=== PATIENT | male | born 1985 | race Caucasian/White ===

== ENCOUNTER 2017-01-11 21:22 | Emergency (ER) | payer OTHER ==
--- NOTE | 2017-01-11 21:58 | ED CLINICAL REPORT ---
Clinical Report - Physicians/Mid Levels [facility] [place] [address] 01/11/2017 21:27 Patient: MELISSA MOORE Time Seen: 22:42 Andrew 2016. Arrived- By private vehicle. Historian- patient. HISTORY OF PRESENT ILLNESS Chief Complaint: Injury to the right hand. The injury happened just prior to arrival. Occurred at home. Patient is experiencing mild pain. Patient denies injury to the head. ( patient reports right hand pain over the last 1 year, worse over 1 month, worse over the last 7 days. Patient denies any direct trauma, reports or shift, [place], however does wear gloves, believes it may be a reaction from the chemicals. Denies any fevers. Denies any drainage in the area. Denies any direct trauma to the area. Patient has not been seen by anybody. Has been taking Motrin, with minimal relief.). REVIEW OF SYSTEMS No tingling. All systems otherwise negative, except as recorded above. PAST HISTORY The patient's dominant hand is the right. He has not had a prior injury to the same area. ADDITIONAL NOTES The nursing notes have been reviewed. PHYSICAL EXAM Vital Signs: 01/11/2017 21:35 BP: 138/86. HR: 80. RR: 16. O2 saturation: 99%. Temp: 98.2 F. Appearance: Alert. Neck: Normal inspection. Neck supple. CVS: Normal heart rate and rhythm. Heart sounds normal. Respiratory: No respiratory distress. Skin: Skin intact. Extremities: Right hand web space: (small inflammation, no erythema, full distal rom, flexion/ extension and sensation). No wrist injury. Neuro, Vascular and Tendons: Vascular status intact. Motor intact. Neuro: Oriented X 3. PROGRESS AND PROCEDURES Course of Care: Senegalese translation line was used. Patient was size of inflammatory process with mild swelling, may be a reaction, will treat withsteroid course, however if this does not improve his symptoms, he may have to follow up outpatient, possible with hand or dermatology. He does not have any signs of decrease of functionality use distal to the area of inflammation, he is instructed to use new gloves, his anti-inflammatory, dose of steroids, and to follow up outpatient. Patient/family counseled. Disposition: Discharged. Condition: good. CLINICAL IMPRESSION Mild irritative contact dermatitis from chemical (R. Hand). INSTRUCTIONS Apply ice. Elevate affected areas above chest level. Do not work tomorrow. Prescription Medications: Ibuprofen 800 mg tablets: take 1 tablet orally every 8 hours for 5 days, as needed for pain. Dispense fifteen (15). No refill. Medrol Dosepak: take according to package directions. Dispense one (1) dosepak. No refills. Substitution is permissible. (Electronically signed by Meena Pablo P.A.-C 01/11/2017 22:45)
--- NOTE | 2017-01-11 21:58 | ED NURSING NOTES ---
Clinical Report - Nurses [facility] [address] [place] [address] 01/11/2017 21:27 Patient: MELISSA MOORE TRIAGE Triage time 2135. Acuity: LEVEL 3. Chief Complaint: RIGHT UPPER EXTREMITY SWELLING and REDNESS. --22:16 Rox Simmons R.N. 21:35 01/11/17. BP: 138/86. HR: 80. RR: 16. O2 saturation: 99%. Temp: 98.2 F. --22:16 Rox Simmons R.N. 22:17 01/11/17. Pain level now 6/10. --22:17 Rox Simmons R.N. Weight: 72.5 kg estimated. Height/Length: 69 inches Estimated. BMI: 23.6. --21:53 Rox Simmons R.N. Medications Motrin at 1930. --21:54 Rox Simmons R.N. Allergies No Known Drug Allergy. --21:54 Rox Simmons R.N. History Arrived by private vehicle. Historian: patient. Accompanied by friend. No primary care physician. This occurred (about 1 month ago, much worse over last 1 week.). He has had swelling and redness. PAST MEDICAL HX: Negative. SURGERY HX: No history of previous surgery. SOCIAL HX: Light tobacco smoker (cigarette)- less than 1/2 a pack per day. Occasional alcohol use. No drug use. He has not traveled outside the [place] --22:16 Rox Simmons R.N. PROBLEMS: no known problems. ADDITIONAL SURGERIES: no known surgeries. Interventions ID band on patient. To treatment room. --22:16 Rox Simmons R.N. PHYSICAL ASSESSMENT 21:35. Ambulatory to room. GENERAL / NEURO / PSYCH: Oriented X 4. Appears in pain. EXTREMITIES: Increased warmth on the extremities. Upper extremity edema. SKIN: Skin is warm and dry. --22:00 Rox Simmons R.N. NURSING PROGRESS NOTES 21:35. Reassurance given. Patient identifiers checked. Call light placed in reach. Side rails up. Bed placed in lowest position. Patient ready for evaluation- chart flagged. ( using [employer] dedicated intermodal truck driver service- for both RN and PA interview and DC instructions). --21:59 Rox Simmons R.N. DISPOSITION / DISCHARGE 22:00. Condition at departure: stable. Ability to learn limited by language barrier; teaching performed with the patient and family via dedicated intermodal truck driver service. Reviewed medication(s) (motrin, medrol dospack). Patient and spouse verbalized understanding. Written instructions provided in Monegasque and Sinhala. The patient was discharged home and accompanied by spouse. He left the Emergency Department ambulatory and via private vehicle. Spouse driving. --22:16 Rox Simmons R.N. 22:00 01/11/17. BP: deferred. HR: deferred. RR: deferred. O2 saturation: deferred. Temp: deferred. Pain level now: 01/09. --22:16 Rox Simmons R.N. Locked/Released at 01/11/2017 22:25 by Rox Simmons R.N.
--- NOTE | 2017-01-11 21:58 | ED CLINICAL REPORT ---
Clinical Report - Physicians/Mid Levels [facility] [place] [address] 01/11/2017 21:27 Patient: MELISSA MOORE Time Seen: 22:42 Andrew 2016. Arrived- By private vehicle. Historian- patient. HISTORY OF PRESENT ILLNESS Chief Complaint: Injury to the right hand. The injury happened just prior to arrival. Occurred at home. Patient is experiencing mild pain. Patient denies injury to the head. ( patient reports right hand pain over the last 1 year, worse over 1 month, worse over the last 7 days. Patient denies any direct trauma, reports or shift, [place], however does wear gloves, believes it may be a reaction from the chemicals. Denies any fevers. Denies any drainage in the area. Denies any direct trauma to the area. Patient has not been seen by anybody. Has been taking Motrin, with minimal relief.). REVIEW OF SYSTEMS No tingling. All systems otherwise negative, except as recorded above. PAST HISTORY The patient's dominant hand is the right. He has not had a prior injury to the same area. ADDITIONAL NOTES The nursing notes have been reviewed. PHYSICAL EXAM Vital Signs: 01/11/2017 21:35 BP: 138/86. HR: 80. RR: 16. O2 saturation: 99%. Temp: 98.2 F. Appearance: Alert. Neck: Normal inspection. Neck supple. CVS: Normal heart rate and rhythm. Heart sounds normal. Respiratory: No respiratory distress. Skin: Skin intact. Extremities: Right hand web space: (small inflammation, no erythema, full distal rom, flexion/ extension and sensation). No wrist injury. Neuro, Vascular and Tendons: Vascular status intact. Motor intact. Neuro: Oriented X 3. PROGRESS AND PROCEDURES Course of Care: Senegalese translation line was used. Patient was size of inflammatory process with mild swelling, may be a reaction, will treat withsteroid course, however if this does not improve his symptoms, he may have to follow up outpatient, possible with hand or dermatology. He does not have any signs of decrease of functionality use distal to the area of inflammation, he is instructed to use new gloves, his anti-inflammatory, dose of steroids, and to follow up outpatient. Patient/family counseled. Disposition: Discharged. Condition: good. CLINICAL IMPRESSION Mild irritative contact dermatitis from chemical (R. Hand). INSTRUCTIONS Apply ice. Elevate affected areas above chest level. Do not work tomorrow. Prescription Medications: Ibuprofen 800 mg tablets: take 1 tablet orally every 8 hours for 5 days, as needed for pain. Dispense fifteen (15). No refill. Medrol Dosepak: take according to package directions. Dispense one (1) dosepak. No refills. Substitution is permissible. (Electronically signed by Meena Pablo P.A.-C 01/11/2017 22:45)
--- NOTE | 2017-01-11 21:58 | ED NURSING NOTES ---
Clinical Report - Nurses [facility] [address] [place] [address] 01/11/2017 21:27 Patient: MELISSA MOORE TRIAGE Triage time 2135. Acuity: LEVEL 3. Chief Complaint: RIGHT UPPER EXTREMITY SWELLING and REDNESS. --22:16 Rox Simmons R.N. 21:35 01/11/17. BP: 138/86. HR: 80. RR: 16. O2 saturation: 99%. Temp: 98.2 F. --22:16 Rox Simmons R.N. 22:17 01/11/17. Pain level now 6/10. --22:17 Rox Simmons R.N. Weight: 72.5 kg estimated. Height/Length: 69 inches Estimated. BMI: 23.6. --21:53 Rox Simmons R.N. Medications Motrin at 1930. --21:54 Rox Simmons R.N. Allergies No Known Drug Allergy. --21:54 Rox Simmons R.N. History Arrived by private vehicle. Historian: patient. Accompanied by friend. No primary care physician. This occurred (about 1 month ago, much worse over last 1 week.). He has had swelling and redness. PAST MEDICAL HX: Negative. SURGERY HX: No history of previous surgery. SOCIAL HX: Light tobacco smoker (cigarette)- less than 1/2 a pack per day. Occasional alcohol use. No drug use. He has not traveled outside the [place] --22:16 Rox Simmons R.N. PROBLEMS: no known problems. ADDITIONAL SURGERIES: no known surgeries. Interventions ID band on patient. To treatment room. --22:16 Rox Simmons R.N. PHYSICAL ASSESSMENT 21:35. Ambulatory to room. GENERAL / NEURO / PSYCH: Oriented X 4. Appears in pain. EXTREMITIES: Increased warmth on the extremities. Upper extremity edema. SKIN: Skin is warm and dry. --22:00 Rox Simmons R.N. NURSING PROGRESS NOTES 21:35. Reassurance given. Patient identifiers checked. Call light placed in reach. Side rails up. Bed placed in lowest position. Patient ready for evaluation- chart flagged. ( using [employer] educational sign language interpreter service- for both RN and PA interview and DC instructions). --21:59 Rox Simmons R.N. DISPOSITION / DISCHARGE 22:00. Condition at departure: stable. Ability to learn limited by language barrier; teaching performed with the patient and family via educational sign language interpreter service. Reviewed medication(s) (motrin, medrol dospack). Patient and spouse verbalized understanding. Written instructions provided in Danish and Latvian. The patient was discharged home and accompanied by spouse. He left the Emergency Department ambulatory and via private vehicle. Spouse driving. --22:16 Rox Simmons R.N. 22:00 01/11/17. BP: deferred. HR: deferred. RR: deferred. O2 saturation: deferred. Temp: deferred. Pain level now: 01/09. --22:16 Rox Simmons R.N. Locked/Released at 01/11/2017 22:25 by Rox Simmons R.N.
--- NOTE | 2017-01-11 22:45 | ED DISCHARGE INSTRUCTIONS ---
Patient: MELISSA MOORE SABRINA General Instructions [facility] VisitID: [id number] [place] [address] 31y, M Registration Date/Time: 01/11/2017 Mild irritative contact dermatitis from chemical (R. Hand). INSTRUCTIONS Apply ice. Elevate affected areas above chest level. Do not work tomorrow. Prescription Medications: Ibuprofen 800 mg tablets: take 1 tablet orally every 8 hours for 5 days, as needed for pain. Dispense fifteen (15). No refill. Medrol Dosepak: take according to package directions. Dispense one (1) dosepak. No refills. Substitution is permissible. ADDITIONAL INFORMATION Dermatitis (Non-Specific) Dermatitis is an inflammation of the skin. The exact cause of your rash is not certain. However, this rash does not appear to be an infection or contagious illness. Taking care of the rash at home should help relieve your symptoms. Home Care: Keep the areas of rash clean by washing it daily. This also helps to keep the skin moist. Use a neutral pH soap such as Dove or Lever 2000. Apply a moisturizing lotion after bathing to prevent dry skin. Avoid skin irritants (wool or silk clothing, grease, oils, some medicines, harsh soaps, and detergents). Wear absorbent, soft fabrics next to the skin rather than rough or scratchy materials. Unless another medicine was prescribed, you may use Hydrocortisone cream (which you can get without a prescription) to reduce the inflammation. Follow Up: Make an appointment with your doctor in the next 1 to 2 weeks if your symptoms do not improve with the above measures. Get Prompt Medical Attention if any of the following occur: Increasing area of redness or pain in the skin Yellow crusts or drainage from the rash Joint pain New rash that appears in other areas of the body Fever of 100.4F (38C) or higher, or as directed by your healthcare provider You have been given the following additional information: Dermatitis, Non-Specific Do not work tomorrow. (Electronically signed by Meena Pablo P.A.-C 01/11/2017 22:45)
--- NOTE | 2017-01-11 22:45 | ED MED RECONCILIATION SUMMARY ---
Patient: DARÍO CHIUMELISSA Medication Reconciliation Report [facility] VisitID: [id number] [address] [place] [address] 31y, M Registration Date/Time: 01/11/2017 Weight: 72.5 kg Height/Length: 69 in. BMI: 23.6 ALLERGIES: No Known Drug Allergy The patient's Home Medications are listed below: THE FOLLOWING MEDICATIONS NEED TO BE RECONCILED: Lindsayrin at 1930 The source(s) of the original Home Medication information: Not obtained. The following Medications were given to the patient in the Emergency Department: None. The following Medications were prescribed to the patient: Ibuprofen 800 mg tablets: take 1 tablet orally every 8 hours for 5 days, as needed for pain. Dispense fifteen (15). No refill. -- Meena Pablo, P.ALavon-Fermin Medrol Dosepak: take according to package directions. Dispense one (1) dosepak. No refills. Substitution is permissible. -- Meena Pablo, P.A.-C
--- NOTE | 2017-01-11 22:45 | ED MED RECONCILIATION SUMMARY ---
Patient: DARÍO CHIUMELISSA Medication Reconciliation Report [facility] VisitID: [id number] [address] [place] [address] 31y, M Registration Date/Time: 01/11/2017 Weight: 72.5 kg Height/Length: 69 in. BMI: 23.6 ALLERGIES: No Known Drug Allergy The patient's Home Medications are listed below: THE FOLLOWING MEDICATIONS NEED TO BE RECONCILED: Lindsayrin at 1930 The source(s) of the original Home Medication information: Not obtained. The following Medications were given to the patient in the Emergency Department: None. The following Medications were prescribed to the patient: Ibuprofen 800 mg tablets: take 1 tablet orally every 8 hours for 5 days, as needed for pain. Dispense fifteen (15). No refill. -- Meena Pablo, P.ALavon-Fermin Medrol Dosepak: take according to package directions. Dispense one (1) dosepak. No refills. Substitution is permissible. -- Meena Pablo, P.A.-C
--- NOTE | 2017-01-11 22:45 | ED MAR SUMMARY ---
..... Medication Administration Record [facility] [address] [place], [place] [id number] Patient: CHANELMELISSA ADAMSON Visit ID: [id number] 31y, M Weight: 72.5 kg Height/Length: 69 in BMI: 23.6 ALLERGIES: No Known Drug Allergy
--- NOTE | 2017-01-11 22:45 | ED DISCHARGE INSTRUCTIONS ---
Patient: MELISSA MOORE SABRINA General Instructions [facility] VisitID: [id number] [place] [address] 31y, M Registration Date/Time: 01/11/2017 Mild irritative contact dermatitis from chemical (R. Hand). INSTRUCTIONS Apply ice. Elevate affected areas above chest level. Do not work tomorrow. Prescription Medications: Ibuprofen 800 mg tablets: take 1 tablet orally every 8 hours for 5 days, as needed for pain. Dispense fifteen (15). No refill. Medrol Dosepak: take according to package directions. Dispense one (1) dosepak. No refills. Substitution is permissible. ADDITIONAL INFORMATION Dermatitis (Non-Specific) Dermatitis is an inflammation of the skin. The exact cause of your rash is not certain. However, this rash does not appear to be an infection or contagious illness. Taking care of the rash at home should help relieve your symptoms. Home Care: Keep the areas of rash clean by washing it daily. This also helps to keep the skin moist. Use a neutral pH soap such as Dove or Lever 2000. Apply a moisturizing lotion after bathing to prevent dry skin. Avoid skin irritants (wool or silk clothing, grease, oils, some medicines, harsh soaps, and detergents). Wear absorbent, soft fabrics next to the skin rather than rough or scratchy materials. Unless another medicine was prescribed, you may use Hydrocortisone cream (which you can get without a prescription) to reduce the inflammation. Follow Up: Make an appointment with your doctor in the next 1 to 2 weeks if your symptoms do not improve with the above measures. Get Prompt Medical Attention if any of the following occur: Increasing area of redness or pain in the skin Yellow crusts or drainage from the rash Joint pain New rash that appears in other areas of the body Fever of 100.4F (38C) or higher, or as directed by your healthcare provider You have been given the following additional information: Dermatitis, Non-Specific Do not work tomorrow. (Electronically signed by Meena Pablo P.A.-C 01/11/2017 22:45)
--- NOTE | 2017-01-11 22:45 | ED MAR SUMMARY ---
..... Medication Administration Record [facility] [address] [place], [place] [id number] Patient: CHANELMELISSA ADAMSON Visit ID: [id number] 31y, M Weight: 72.5 kg Height/Length: 69 in BMI: 23.6 ALLERGIES: No Known Drug Allergy
== END 2017-01-11 22:05 | disposition home or self-care (01) ==
LOC: ED SRH 21:22
DX: L24.5 Irritant contact dermatitis due to other chemical products (principal)

== ENCOUNTER 2017-01-21 20:01 | Emergency (ER) | payer OTHER ==
--- NOTE | 2017-01-21 20:15 | ED NURSING NOTES ---
Clinical Report - Nurses [facility] [place] [address] 01/21/2017 20:02 [id number] Triage time 20:05. Acuity: LEVEL 4. Chief Complaint: RIGHT EAR PAIN. 20:13 01/21/17. Alert. No acute distress. SEPSIS SCREEN: Sepsis Screen. Negative (no infection suspected/documented). ABDI COMA SCORE: Ewing Coma Scale: 15- eyes open spontaneously (4); best verbal response- oriented x 4 (5); best motor response- obeys commands (6). --20:13 Promise Woods R.N. 20:06 01/21/17. BP: 126/76. HR: 75. RR: 15. O2 saturation: 95%. Temp: 97.9 F. Pain level now: 8/10. --20:13 Promise Woods R.N. Weight: 72.5 kg estimated. Height/Length: 65 inches Estimated. BMI: 26.6. --20:12 Promise Woods R.N. Medications None. --20:09 Promise Woods R.N. Allergies None. --20: Promise Woods R.N. History Arrived by private vehicle. Historian: patient. Accompanied by family. Onset. (four days ago). 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 PAST MEDICAL HX: Immunizations: up-to-date. SOCIAL HX: Light tobacco smoker. Occasional alcohol use. No drug use. FALL RISK ASSESSMENT: Fall risk assessment completed. No fall risk identified. NUTRITIONAL RISK ASSESSMENT: The nutritional risk assessment revealed no deficiencies. FUNCTIONAL ASSESSMENT: Functional assessment: no impairments noted. LEARNING NEEDS ASSESSMENT: The learning needs assessment revealed no barriers. SKIN INTEGRITY ASSESSMENT: Skin integrity risk assessment completed. No skin integrity risk identified. --20:13 Promise Woods R.N. PROBLEMS: Contact Dermatitis. --20:09 Promise Woods R.N. ADDITIONAL SURGERIES: no known surgeries. Interventions ID band on patient. To treatment room. --20:13 Promise Woods R.N. PHYSICAL ASSESSMENT 20:16 01/21/17. Ambulatory to room. GENERAL / NEURO / PSYCH: Alert. Appears in no acute distress. HEENT: No facial asymmetry noted. Pupils equal, round and reactive to light. Inflammation present in the right external auditory canal. Left ear within normal limits. RESPIRATORY: Respirations not labored. CVS: Capillary refill less than 2 seconds. SKIN: Skin is warm and dry. --20:16 Promise Woods R.N. NURSING PROGRESS NOTES 20:01/21/17. Two patient identifiers checked. Call light placed in reach. Side rails up x 1. Bed placed in lowest position. Brakes of bed on. --20:17 Promise Woods R.N. DISPOSITION / DISCHARGE 20:01/21/17. No learning barriers present. Discharge instructions provided and reviewed with the patient and spouse. Reviewed warnings. Reviewed medication(s). Treatments reviewed. Patient and spouse verbalized understanding. Written instructions provided in Malay and Anguillan. ( Patient stated he understood discharge information and did not need any additional translation services.). The patient was discharged home and accompanied by spouse. He left the Emergency Department ambulatory and via private vehicle. --20:25 Promise Woods R.N. 20:01/21/17. BP: 126/76. HR: 75. RR: 15. O2 saturation: 95%. Temp: 97.9 F. Pain level now: 8/10. --20:25 Promise Woods R.N. Locked/Released at 01/21/2017 20:32 by Promise Woods R.N.
--- NOTE | 2017-01-21 20:15 | ED CLINICAL REPORT ---
Clinical Report - Physicians/Mid Levels Located [facility] [address] [place] [address] 01/21/2017 20:02 Patient: MELISSA MOORE Time Seen: 2002; upon arrival, initial patient contact, initial documentation, patient care assumed. Arrived- By private vehicle. Historian- patient. HISTORY OF PRESENT ILLNESS Chief Complaint: EARACHE. Modifying factors. Not worsened by anything. Not relieved by anything. This started about 4 days ago and is still present. Location- right ear. The pain is described as moderate. The patient has had ear pain. He has had mild right-sided tinnitus (for 2 days ago). The tinnitus on the right has been constant and associated with ringing and roaring. No ear drainage, hearing loss, nasal discharge or congestion or sinus pressure. No complaint of foreign body in the ear, ear trauma, recent barotrauma, sore throat or toothache. No jaw pain or facial pain. Similar symptoms previously: None. Recent medical care: Not recently seen/assessed. REVIEW OF SYSTEMS No fever or cough. All systems otherwise negative, except as recorded above. PAST HISTORY Negative. SOCIAL HISTORY Light tobacco smoker. Occasional alcohol use. Not exposed to second-hand smoke at home. No drug use. No recent travel. Is a local resident. He lives with spouse. FAMILY HISTORY Negative. ADDITIONAL NOTES The nursing notes have been reviewed with agreement regarding the chief complaint, HPI, ROS, PMH and patient medications and allergies. PHYSICAL EXAM Vital Signs: 01/21/2017 20:06 BP: 126/76. HR: 75. RR: 15. O2 saturation: 95%. Temp: 97.9 F. Pain level now: 8/10. Have been reviewed as normal and appear to be correct. Appearance: Alert. No acute distress. Eyes: Eyes normal inspection. Nose: Nose normal. Ear (right): There is mild erythema of the external canal and swelling of the external canal. Right ear abnormal. Right tympanic membrane normal. Ear (left): Left ear normal. Left tympanic membrane normal. Throat: Pharynx normal. Neck: Normal inspection. Neck supple. Respiratory: No respiratory distress. Skin: Skin warm and dry. Normal skin color. No rash. Normal skin turgor. Extremities: Extremities exhibit normal ROM. No lower extremity edema. Neuro: Oriented X 3. No motor deficit. No sensory deficit. PROGRESS AND PROCEDURES Patient counseled in person regarding the patient's stable condition and diagnosis. Differential Diagnosis: Other possible considerations: tinnitus, aoe, aom, perforated tm. Above considerations are based on history and physical exam. Differential diagnosis was discussed with patient. Disposition: Discharged home in good and unchanged condition (20:15). Condition: good and stable. CLINICAL IMPRESSION Acute localized right otitis externa with cellulitis of the external canal. INSTRUCTIONS Warnings: GENERAL WARNINGS: Return or contact your physician immediately if your condition worsens or changes unexpectedly, if not improving as expected, or if other problems arise. Specifically return if problem worsens. Prescription Medications: Cortisporin otic suspension: Instill 4 drops into affected ear every 6 hours for 1 week. Dispense ten (10) mL. No refills. Substitution is permissible. Follow-up: Follow up with your doctor in about three days even if well. Call for an appointment. Summary of care provided to patient. Understanding of the discharge instructions verbalized by patient. (Electronically signed by Shirley Tapia A.R.N.P. 01/21/2017 20:51)
--- NOTE | 2017-01-21 20:15 | ED NURSING NOTES ---
Clinical Report - Nurses [facility] [place] [address] 01/21/2017 20:02 [id number] Triage time 20:05. Acuity: LEVEL 4. Chief Complaint: RIGHT EAR PAIN. 20:13 01/21/17. Alert. No acute distress. SEPSIS SCREEN: Sepsis Screen. Negative (no infection suspected/documented). ABDI COMA SCORE: [place] Coma Scale: 15- eyes open spontaneously (4); best verbal response- oriented x 4 (5); best motor response- obeys commands (6). --20:13 Promise Woods R.N. 20:06 01/21/17. BP: 126/76. HR: 75. RR: 15. O2 saturation: 95%. Temp: 97.9 F. Pain level now: 8/10. --20:13 Promise Woods R.N. Weight: 72.5 kg estimated. Height/Length: 65 inches Estimated. BMI: 26.6. --20:12 Promise Woods R.N. Medications None. --20:09 Promise Woods R.N. Allergies None. --20: Promise Woods R.N. History Arrived by private vehicle. Historian: patient. Accompanied by family. Onset. (four days ago). Treatment RECORD CLERK: None. PAST MEDICAL HX: Immunizations: up-to-date. SOCIAL HX: Light tobacco smoker. Occasional alcohol use. No drug use. FALL RISK ASSESSMENT: Fall risk assessment completed. No fall risk identified. NUTRITIONAL RISK ASSESSMENT: The nutritional risk assessment revealed no deficiencies. FUNCTIONAL ASSESSMENT: Functional assessment: no impairments noted. LEARNING NEEDS ASSESSMENT: The learning needs assessment revealed no barriers. SKIN INTEGRITY ASSESSMENT: Skin integrity risk assessment completed. No skin integrity risk identified. --20:13 Promise Woods R.N. PROBLEMS: Contact Dermatitis. --20:09 Promise Woods R.N. ADDITIONAL SURGERIES: no known surgeries. Interventions ID band on patient. To treatment room. --20:13 Promise Woods R.N. PHYSICAL ASSESSMENT 20:16 01/21/17. Ambulatory to room. GENERAL / NEURO / PSYCH: Alert. Appears in no acute distress. HEENT: No facial asymmetry noted. Pupils equal, round and reactive to light. Inflammation present in the right external auditory canal. Left ear within normal limits. RESPIRATORY: Respirations not labored. CVS: Capillary refill less than 2 seconds. SKIN: Skin is warm and dry. --20:16 Promise Woods R.N. NURSING PROGRESS NOTES 20:01/21/17. Two patient identifiers checked. Call light placed in reach. Side rails up x 1. Bed placed in lowest position. Brakes of bed on. --20:17 Promise Woods R.N. DISPOSITION / DISCHARGE 20:01/21/17. No learning barriers present. Discharge instructions provided and reviewed with the patient and spouse. Reviewed warnings. Reviewed medication(s). Treatments reviewed. Patient and spouse verbalized understanding. Written instructions provided in Slovenian and [place]. ( Patient stated he understood discharge information and did not need any additional translation services.). The patient was discharged home and accompanied by spouse. He left the Emergency Department ambulatory and via private vehicle. --20:25 Promise Woods R.N. 20:01/21/17. BP: 126/76. HR: 75. RR: 15. O2 saturation: 95%. Temp: 97.9 F. Pain level now: 8/10. --20:25 Promise Woods R.N. Locked/Released at 01/21/2017 20:32 by Promise Woods R.N.
--- NOTE | 2017-01-21 20:51 | ED MED RECONCILIATION SUMMARY ---
Patient: DARÍO CHIU MELISSA BENNETT Medication Reconciliation Report [facility] VisitID: [id number] [address] [place] [address] 31y, M Registration Date/Time: 01/21/2017 Weight: 72.5 kg Height/Length: 65 in. BMI: 26.6 ALLERGIES: None The patient's Home Medications are listed below: NONE. The source(s) of the original Home Medication information: Not obtained. The following Medications were given to the patient in the Emergency Department: None. The following Medications were prescribed to the patient: Cortisporin otic suspension: Instill 4 drops into affected ear every 6 hours for 1 week. Dispense ten (10) mL. No refills. Substitution is permissible. -- Shirley Tapia A.R.N.P.
--- NOTE | 2017-01-21 20:51 | ED MED RECONCILIATION SUMMARY ---
Patient: DARÍO CHIU MELISSA BENNETT Medication Reconciliation Report [facility] VisitID: [id number] [address] [place] [address] 31y, M Registration Date/Time: 01/21/2017 Weight: 72.5 kg Height/Length: 65 in. BMI: 26.6 ALLERGIES: None The patient's Home Medications are listed below: NONE. The source(s) of the original Home Medication information: Not obtained. The following Medications were given to the patient in the Emergency Department: None. The following Medications were prescribed to the patient: Cortisporin otic suspension: Instill 4 drops into affected ear every 6 hours for 1 week. Dispense ten (10) mL. No refills. Substitution is permissible. -- Shirley Tapia A.R.N.P.
--- NOTE | 2017-01-21 20:51 | ED MAR SUMMARY ---
..... Medication Administration Record [facility] [address] [place], [place] [id number] Patient: MELISSA MOORE Visit ID: [id number] 31y, M Weight: 72.5 kg Height/Length: 65 in BMI: 26.6 ALLERGIES: None
--- NOTE | 2017-01-21 20:51 | ED DISCHARGE INSTRUCTIONS ---
Patient: MELISSA MOORE SABRINA General Instructions [facility] VisitID: [id number] [place] [address] 31y, M Registration Date/Time: 01/21/2017 Acute localized right otitis externa with cellulitis of the external canal. INSTRUCTIONS Warnings: GENERAL WARNINGS: Return or contact your physician immediately if your condition worsens or changes unexpectedly, if not improving as expected, or if other problems arise. Specifically return if problem worsens. Prescription Medications: Cortisporin otic suspension: Instill 4 drops into affected ear every 6 hours for 1 week. Dispense ten (10) mL. No refills. Substitution is permissible. Follow-up: Follow up with your doctor in about three days even if well. Call for an appointment. Summary of care provided to patient. Understanding of the discharge instructions verbalized by patient. ADDITIONAL INFORMATION External Ear Infection [Adult] This is an infection in the ear canal due to an overgrowth of bacteria or fungus. This often occurs a few days after water gets trapped in the ear canal (swimming or bathing). It may also occur after cleaning too deeply in the ear canal with a cotton swab or other object. Sometimes hair care products get into the ear canal and cause this problem. There may be itching, redness, drainage, or swelling of the ear canal and temporary loss of hearing. Home Care: Do not try to clean the ear canal. That could push pus and bacteria deeper into the canal. Use the drops prescribed to reduce swelling and fight the infection. If an EAR WICK was placed in the ear canal, apply drops right onto the end of the wick. The wick will draw the medicine into the ear canal even if it is swollen closed. Do not allow water to get into your ear when bathing. No swimming during this time. A cotton ball may be loosely placed in the outer ear to absorb any drainage. You may use acetaminophen (Tylenol) or ibuprofen (Motrin, Advil) to control pain, unless another medicine was prescribed. [NOTE: If you have chronic liver or kidney disease or ever had a stomach ulcer or GI bleeding, talk with your doctor before using these medicines.] Preventing Future Infections: You can usually avoid this problem by using an eardrop that removes the water from your ear canal when you feel there is water trapped there. You can get these drops over the counter (Swim Ear, Aqua Ear and other brands). Follow Up with your doctor or this facility in one week or as instructed by our staff. Get Prompt Medical Attention if any of the following occur: Ear pain becomes worse or does not begin to improve after 3 days of treatment Redness or swelling of the outer ear occurs or gets worse Headache, painful or stiff neck, Feeling drowsy or confused Fever of 100.4F (38C) or higher, or as directed by your healthcare provider Seizure You have been given the following additional information: External Ear Infection (Adult) (Electronically signed by Shirley Tapia A.R.N.P. 01/21/2017 20:51)
--- NOTE | 2017-01-21 20:51 | ED MAR SUMMARY ---
..... Medication Administration Record [facility] [address] [place], [place] [id number] Patient: MELISSA MOORE Visit ID: [id number] 31y, M Weight: 72.5 kg Height/Length: 65 in BMI: 26.6 ALLERGIES: None
== END 2017-01-21 20:25 | disposition home or self-care (01) ==
LOC: ED SRH 20:01
DX: H60.11 Cellulitis of right external ear (principal); F17.290 Nicotine dependence, other tobacco product, uncomplicated